=== PATIENT | male | born 1965 | race African-American/Black ===

== ENCOUNTER 2018-12-05 12:45 | Day surgery (SDC) | payer OTHER ==
[2018-12-05] MEDS ORDERED: PROPOFOL 40 ML (15:34)
[2018-12-05] MEDS ORDERED: LIDOCAINE 2% (SDV) 5 ML INJ (15:34)
[2018-12-05] MEDS ORDERED: DIPHENHYDRAMINE 50 MG INJ IV (16:00)
[2018-12-05] MEDS ORDERED: FENTAnyl 50 MCG/ML VIAL IV ×3 (16:00)
[2018-12-05] MEDS ORDERED: HYDROmorphONE 1 MG/5 ML IV SYRINGE IV ×3 (16:00)
[2018-12-05] MEDS ORDERED: OXYCODONE/ACETAMINOPHEN (5/325) TAB PO ×2 (16:00)
[2018-12-05] MEDS ORDERED: ALBUTEROL 0.083% (NEB) 2.5 MG/3 ML AMP HHN (16:00)
[2018-12-05] MEDS ORDERED: MIDAZOLAM 1 MG/ML 2 ML INJ IV (16:00)
[2018-12-05] MEDS ORDERED: ONDANSETRON 4 MG INJ IV (16:00)
[2018-12-05] MEDS ORDERED: IPRATROPIUM (NEB) 0.5 MG/2.5 ML AMP HHN (16:00)
[2018-12-05] MEDS ORDERED: TRIMETHOBENZAMIDE 100 MG/ML VIAL IM (16:00)
[2018-12-05] MEDS ORDERED: EPHEDrine SULFATE 50 MG/5 ML SYG IV (16:00)
[2018-12-05] MEDS ORDERED: LABETALOL HCL 20MG INJ IV (16:00)
[2018-12-05] MEDS ORDERED: MEPERIDINE 25 MG INJ IV (16:00)
[2018-12-05] MEDS ORDERED: hydrALAzine 20 MG INJ IV (16:00)
== END 2018-12-05 17:23 | disposition home or self-care (01) ==
LOC: GIL 12:45
DX: Z12.11 Encounter for screening for malignant neoplasm of colon (principal); K64.8 Other hemorrhoids; I10 Essential (primary) hypertension
CPT/HCPCS: 45378